=== PATIENT | male | born 1955 ===

== ENCOUNTER 2025-03-15 03:13 | Emergency (ER) | payer MEDICARE ==
[2025-03-15] MEDS ORDERED: HYDROcodone/Acetaminophen 10/325 mg Tablet ONE (03:26)
[2025-03-15] MEDS ORDERED: Simethicone Chewable 80 MG TAB ONE (03:26)
[2025-03-15] MEDS ORDERED: Lidocaine Viscous Sol 2% 15 ml UD Cup ONE (03:27)
== END 2025-03-15 03:40 ==
LOC: MADERS 03:13
DX: K08.89 Other specified disorders of teeth and supporting structures (principal); R14.1 Gas pain; I10 Essential (primary) hypertension
CPT/HCPCS: 99284

== ENCOUNTER 2025-04-29 15:25 | Outpatient (CLI) | payer MEDICARE ==
[2025-04-29 15:52] LABS: #Basophils 0.0 thou/uL (0.0-0.2); #Eosinophils 0.1 thou/uL (0.0-0.7); #Lymphocytes 1.0 thou/uL (1.20-3.40); #Monocytes 0.4 thou/uL (0.11-0.59); #Neutrophils 5.2 thou/uL (1.40-6.50); %Basophils 0.3 % (0.0-1.0); %Eosinophils 1.3 % (0.0-10.0); %Lymphocytes 15.1 % (21.0-51.0); %Monocytes 6.3 % (0.0-10.0); %Neutrophils 77.0 % (42.0-75.0); Anion Gap 19 mmol/L (10-20); BUN (Urea Nitrogen) 14 mg/dL (8.4-25.7); Calc. Creatinine Clearance 0 mL/min (70-130); Calcium 9.3 mg/dL (7.8-10.44); Carbon Dioxide 22 mmol/L (23-31); Chloride 108 mmol/L (98-107); Glucose 93 mg/dL (80-115); Hematocrit 51.7 % (42.0-52.0); Hemoglobin 15.9 g/dL (14.0-18.0); Mean Corpuscular Hemoglobin 27.1 pg (27.0-31.0); Mean Corpuscular Volume 87.7 fl (78.0-98.0); Platelet Count 226 10x3/uL (130-400); Potassium 4.5 mmol/L (3.5-5.1); Red Blood Cell (RBC) Count 5.90 mill/uL (4.70-6.10); Sodium 144 mmol/L (136-145); White Blood Cell (WBC) Count 6.7 10x3/uL (4.8-10.8)
== END 2025-04-29 15:26 | disposition home or self-care (01) ==
LOC: MADLAB 15:25
PROVIDERS: ATTEND Nurse Practitioner Primary Care
DX: I10 Essential (primary) hypertension (principal); G80.9 Cerebral palsy, unspecified; I95.1 Orthostatic hypotension
CPT/HCPCS: 80048; 85025